=== PATIENT | male | born 1975 | race Caucasian/White ===

== ENCOUNTER → 2018-05-09 | Outpatient (CLI) | payer BC ==
--- NOTE | 2018-05-09 14:53 | PCVCIMAG ---
EXAM: NONINVASIVE ARTERIAL EXAMINATION OF BOTH LOWER EXTREMITIES INCLUDING PRE AND POST EXERCISE PRESSURE MEASUREMENTS AND DOPPLER WAVEFORMS INDICATION: Peripheral Arterial Disease. Leg pain. FINDINGS: Right Brachial: 148 mm Hg. Right Dorsalis Pedis: 118 mm Hg. Right Posterior Tibial: 104 mm Hg. Right IVETT = 0.80. Left Brachial: 145 mm Hg. Left Dorsalis Pedis: 102 mm Hg. Left Posterior Tibial: 101 mm Hg. Left IVETT = 0.69. Post Exercise: Right Brachial 166 mm Hg. Right Dorsalis Pedis: 70 mm Hg. Left Dorsalis Pedis: 61 mm Hg. Right IVETT = 0.42. Left IVETT = 0.37. IMPRESSION: Minimal resting ischemia in the right lower extremity. Moderately severe exercise induced ischemia in the right lower extremity. Mild resting ischemia in the left lower extremity. Moderately severe exercise induced ischemia in the left lower extremity. LOC:[id number]
--- NOTE | 2018-05-09 16:25 | PCVCIMAG ---
EXAM: BILATERAL LOWER EXTREMITY ARTERIAL DUPLEX INDICATION: Peripheral Arterial Disease. Leg pain. FINDINGS: Right Leg: Common femoral and profunda femoral arteries are patent. Segmental occlusion distal [place] superficial femoral artery. Popliteal artery is patent. The anterior tibial, peroneal, and posterior tibial arteries are patent. Left Leg: Common femoral profunda femoral arteries are patent. Segmental occlusion mid/distal [place] left superficial femoral artery. Popliteal artery is patent. The anterior tibial, peroneal, and posterior tibial arteries are patent. IMPRESSION: Segmental occlusion distal [place] right superficial femoral artery. Segmental occlusion mid/distal [place] left superficial femoral artery. LOC:[id number]
== END | disposition home or self-care (01) ==
LOC: PCVCIMAG 13:41
PROVIDERS: ATTEND Nuclear Medicine Nuclear Cardiology
DX: I73.9 Peripheral vascular disease, unspecified (principal); E78.00 Pure hypercholesterolemia, unspecified; E11.9 Type 2 diabetes mellitus without complications; Z72.0 Tobacco use
CPT/HCPCS: 93924; 93925

== ENCOUNTER → 2018-10-10 | Outpatient (CLI) | payer BC ==
--- NOTE | 2018-10-10 14:06 | PCVCIMAG ---
EXAM: NONINVASIVE ARTERIAL EXAMINATION OF BOTH LOWER EXTREMITIES INCLUDING PRE AND POST EXERCISE PRESSURE MEASUREMENTS AND DOPPLER WAVEFORMS INDICATION: Peripheral Arterial Disease. Leg pain. FINDINGS: Right Brachial: 127 mm Hg. Right Dorsalis Pedis: 143 mm Hg. Right Posterior Tibial: 101 mm Hg. Right IVETT = 1.01. Left Brachial: 141 mm Hg. Left Dorsalis Pedis: 112 mm Hg. Left Posterior Tibial: 106 mm Hg. Left IVETT = 0.79. Post Exercise: Left Brachial 153 mm Hg. Right Dorsalis Pedis: 103 mm Hg. Left Dorsalis Pedis: 71 mm Hg. Right IVETT = 0.67. Left IVETT = 0.46. IMPRESSION: No resting ischemia in the right lower extremity. Mild exercise induced ischemia in the right lower extremity. Mild resting ischemia in the left lower extremity. Moderate exercise induced ischemia in the left lower extremity. LOC:[id number]
--- NOTE | 2018-10-10 14:57 | PCVCIMAG ---
EXAM: BILATERAL LOWER EXTREMITY ARTERIAL DUPLEX INDICATION: Peripheral Arterial Disease. Leg pain. FINDINGS: Right Leg: Common femoral and profunda femoral arteries are patent. Origin superficial femoral artery shows 70-80% stenosis in the area showing moderate stenosis on recent angiogram. Previous stent mid/distal superficial femoral artery is widely patent. Proximal artery is patent. The anterior tibial, peroneal, and posterior tibial arteries are patent. Left Leg: Common femoral and profunda femoral is patent. 70-80% stenosis origin superficial femoral artery corresponding to an area of moderate disease and recent angiogram. Previous stent mid/distal superficial femoral artery maintaining good patency throughout. The popliteal artery is patent. The anterior tibial, peroneal, and posterior tibial arteries are patent. IMPRESSION: 70-80% stenosis origin right superficial femoral artery at an area of prior disease seen on recent angiogram. Otherwise no flow limiting stenosis in the right lower extremity. Previous mid/distal right superficial femoral artery stent maintaining good patency. 70-80% stenosis origin left superficial femoral artery at an area of prior disease seen on recent angiogram. Otherwise no flow limiting stenosis in the left lower extremity. Previous mid/distal left superficial femoral artery stent maintaining good patency. LOC:[id number]
--- NOTE | 2018-10-10 15:44 | PCVCIMAG ---
APPROVED REPORT Laterality: Bilateral Indications Stenosis Doppler Spectral Velocity Analysis PSV / EDVPSV / EDV ECA (R) 82 / 14 cm/sECA (L) 80 / 18 cm/s dICA (R) 42 / 26 cm/sdICA (L) 0 / 0 cm/s Efraín (R) 50 / 28 cm/smICA (L) 0 / 0 cm/s pICA (R) 56 / 27 cm/spICA (L) 0 / 0 cm/s Bulb (R) 51 / 20 cm/sBulb (L) 42 / 9 cm/s dCCA (R) 66 / 24 cm/sdCCA (L) 44 / 10 cm/s mCCA (R) 63 / 17 cm/smCCA (L) 73 / 12 cm/s Vert (R) 24 / 9 cm/sVert (L) 63 / 36 cm/s ICA/CCA 0.85 ICA/CCA 0.00 Findings The right carotid bulb has minimal plaque. The right proximal internal carotid artery shows no significant stenosis. The right common carotid artery shows no significant stenosis. The right external carotid artery shows no significant stenosis. The left carotid bulb has moderate plaque. The left proximal internal carotid is occluded at its origin The left common carotid artery shows no significant stenosis. The left external carotid artery shows no significant stenosis. Conclusion 1. Minimal right internal carotid artery plaquing without significant stenosis. 2. Left internal carotid artery occlusion 3. Antegrade vertebral flow.
== END | disposition home or self-care (01) ==
LOC: PCVCIMAG 13:10
PROVIDERS: ATTEND Nuclear Medicine Nuclear Cardiology
DX: I70.291 Other atherosclerosis of native arteries of extremities, right leg (principal); I65.22 Occlusion and stenosis of left carotid artery; E11.9 Type 2 diabetes mellitus without complications; Z87.891 Personal history of nicotine dependence
CPT/HCPCS: 93880; 93924; 93925

== ENCOUNTER → 2018-12-22 | Outpatient (CLI) | payer BC ==
--- NOTE | 2018-12-22 15:37 | PCVCIMAG ---
APPROVED REPORT Study performed: 12/22/2018 14:18:31 EXAM: Limited 2D Echocardiogram Patient Location: Echo lab Room #: 2Status: routine BSA: 1.82 HR: 79 bpmBP: 104/70 mmHg Rhythm: NSR Other Information Study Quality: Adequate Risk Factors: Cardiac Risk Factors: Hyperlipidemia, HTN, DM Indications CAD S/P SD 2D Dimensions IVSd: 10.69 (7-11mm) LVDd: 60.58 mm PWd: 9.69 (7-11mm)Ascending Ao: 35.02 (22-36mm) LVDs: 50.78 (25-40mm) Left Atrium: 37.05 (27-40mm) Aortic Root: 33.85 mm LV Single Plane 4CH: 34.43 % LV Single Plane 2CH: 37.47 % Biplane EF: 36.2 % Volumes Left Atrial Volume (Systole) Single Plane 4CH: 32.91 mLSingle Plane 2CH: 29.47 mL LA ESV Index: 19.00 mL/m2 Tricuspid Valve RAP Estimate: 7.00 mmHg Left Ventricle Left ventricle is mildly dilated. Inferior wall akinesis. Lateral wall hypokinesis. Borderline concentric left ventricular hypertrophy. Left ventricular systolic function is severely decreased. LVEF is 30-35%. Right Ventricle The right ventricle is normal size. The right ventricular systolic function is normal. Atria The left atrium size is normal. The right atrium size is normal. Aortic Valve The aortic valve is normal in structure. Mitral Valve The mitral valve is normal in structure. Tricuspid Valve The tricuspid valve is normal in structure. Pulmonic Valve The pulmonary valve is normal in structure. Great Vessels The aortic root is normal in size. The ascending aorta is normal in size. IVC is normal in size and collapses >50% with inspiration. Pericardium There is no pericardial effusion. <Conclusion> Left ventricle is mildly dilated. Borderline concentric left ventricular hypertrophy. Left ventricular systolic function is severely decreased. Inferior wall akinesis. Lateral wall hypokinesis. LVEF is 30-35%. The right ventricle is normal size. The left atrium size is normal. The aortic valve is normal in structure. The mitral valve is normal in structure. The aortic root is normal in size. There is no pericardial effusion.
== END | disposition home or self-care (01) ==
LOC: PCVCIMAG 13:51
PROVIDERS: ATTEND Internal Medicine Cardiovascular Disease
DX: I25.10 Atherosclerotic heart disease of native coronary artery without angina pectoris (principal); I25.2 Old myocardial infarction; I11.9 Hypertensive heart disease without heart failure; I70.1 Atherosclerosis of renal artery; I73.9 Peripheral vascular disease, unspecified; E78.00 Pure hypercholesterolemia, unspecified; E11.9 Type 2 diabetes mellitus without complications; I25.5 Ischemic cardiomyopathy; Z87.891 Personal history of nicotine dependence; Z79.82 Long term (current) use of aspirin; Z79.899 Other long term (current) drug therapy; Z79.84 Long term (current) use of oral hypoglycemic drugs
CPT/HCPCS: 93308

== ENCOUNTER → 2019-01-06 | Outpatient (CLI) | payer BC ==
--- NOTE | 2019-01-06 12:55 | PCVCIMAG ---
EXAM: LEFT LOWER EXTREMITY ARTERIAL DUPLEX INDICATION: Peripheral Arterial Disease. Leg pain. FINDINGS: Left Leg: Common femoral and profunda femoral arteries are patent. Interval occlusion has developed throughout the superficial femoral artery including stent in the mid/distal portion. Interval occlusion throughout the popliteal artery has also developed. Severely blunted flow in the infrapopliteal vessels make these difficult to evaluate with minimal flow identified. IMPRESSION: Interval occlusion of the left superficial femoral artery and popliteal artery as detailed above with severely blunted flow in the infrapopliteal vessels. LOC:[id number]
== END | disposition home or self-care (01) ==
LOC: PCVCIMAG 10:51
PROVIDERS: ATTEND Nuclear Medicine Nuclear Cardiology
DX: I70.292 Other atherosclerosis of native arteries of extremities, left leg (principal); E11.9 Type 2 diabetes mellitus without complications; E78.00 Pure hypercholesterolemia, unspecified; I10 Essential (primary) hypertension; Z82.3 Family history of stroke; Z79.82 Long term (current) use of aspirin; Z79.84 Long term (current) use of oral hypoglycemic drugs; Z72.0 Tobacco use; Z79.899 Other long term (current) drug therapy
CPT/HCPCS: 93926

== ENCOUNTER → 2019-02-14 | Outpatient (CLI) | payer BC ==
--- NOTE | 2019-02-14 10:15 | PCVCIMAG ---
EXAM: BILATERAL LOWER EXTREMITY ARTERIAL DUPLEX INDICATION: Peripheral Arterial Disease. Leg pain. FINDINGS: Right Leg: Common femoral and profunda femoral arteries are patent. 75% stenosis origin [place] superficial femoral artery. Previous stent mid/distal superficial femoral artery maintaining good patency. Popliteal artery is patent. The anterior tibial, peroneal, and posterior tibial arteries are patent. Left Leg: Common femoral and profunda femoral arteries are patent. Occlusion throughout the superficial femoral artery including stent in the mid/distal portion as was seen on recent angiogram. Refilling of the mid/distal popliteal artery. The anterior tibial, peroneal, and posterior tibial arteries are patent. IMPRESSION: 75% stenosis origin right superficial femoral artery. Previous stent mid/distal right superficial femoral artery maintaining good patency. Unchanged occlusion throughout the left superficial femoral artery and upper popliteal artery as described. LOC:[id number]
--- NOTE | 2019-02-14 13:31 | PCVCIMAG ---
APPROVED REPORT Study performed: 02/14/2019 09:16:41 EXAM: Comprehensive 2D, Doppler, and color-flow Echocardiogram Patient Location: Echo lab Room #: 2Status: routine BSA: 1.87 HR: 78 bpmBP: 100/68 mmHg Rhythm: NSR Other Information Study Quality: Good Risk Factors: Cardiac Risk Factors: HTN, Hyperlipidemia, DM, FHX of CAD, Smoking Indications Diabetes Non STEMI CAD Cardiomyopathy Hypertension/HDD 2D Dimensions IVSd: 12.20 (7-11mm)LVOT Diam: 23.60 (18-24mm) LVDd: 49.01 mm PWd: 12.57 (7-11mm)Ascending Ao: 28.83 (22-36mm) LVDs: 45.49 (25-40mm) Left Atrium: 35.82 (27-40mm) Aortic Root: 31.39 mm LV Single Plane 4CH: 33.60 % LV Single Plane 2CH: 37.79 % Biplane EF: 35.1 % Volumes Left Atrial Volume (Systole) Single Plane 4CH: 17.36 mLSingle Plane 2CH: 15.60 mL LA ESV Index: 17.00 mL/m2 Aortic Valve AoV Peak Thaddeus.: 0.95 m/s AO Peak Gr.: 4.21 mmHgLVOT Max P.55 mmHg LVOT Max V: 0.62 m/s DUNCAN Vmax: 2.87 cm2 Mitral Valve E/A Ratio: 0.6 MV Decel. Time: 207.88 ms MV E Max Thaddeus.: 0.39 m/s MV A Thaddeus.: 0.69 m/s IVRT: 134.95 ms Pulmonary Valve PV Peak Thaddeus.: 0.69 m/sPV Peak Gr.: 1.90 mmHg Pulmonary Vein P Vein S: 0.43 m/sP Vein A: 0.45 m/s P Vein D: 0.16 m/sP Vein A Dur.: 103.8 msec P Vein S/D Ratio: 2.69 Tricuspid Valve TV Vmax: 0.48 m/s Left Ventricle The left ventricle is normal size. Global moderate to severt hypokinesis with inferior wall akinesis. Mild concentric left ventricular hypertrophy. Left ventricular systolic function is moderate to severely decreased. LVEF is 30-35%. Grade I - abnormal relaxation pattern. Right Ventricle The right ventricle is normal size. The right ventricular systolic function is normal. Atria The left atrium size is normal. The right atrium size is normal. Aortic Valve Aortic valve is trileaflet. Mild aortic valve sclerosis. No aortic regurgitation is present. There is no aortic valvular stenosis. Mitral Valve The mitral valve is normal in structure. There is no mitral valve regurgitation noted. No evidence of mitral valve stenosis. Tricuspid Valve The tricuspid valve is normal in structure. Trace tricuspid regurgitation. No apparent pulmonary hypertension. Pulmonic Valve The pulmonary valve is normal in structure. Trace pulmonic regurgitation. Great Vessels The aortic root is normal in size. The ascending aorta is normal in size. Aortic arch is normal in caliber. IVC is normal in size and collapses >50% with inspiration. Pericardium There is no pericardial effusion. There is no pleural effusion. <Conclusion> The left ventricle is normal size. Global moderate to severt hypokinesis with inferior wall akinesis. Mild concentric left ventricular hypertrophy. Left ventricular systolic function is moderate to severely decreased. LVEF is 30-35%. Grade I - abnormal relaxation pattern. The right ventricle is normal size. The left atrium size is normal. Aortic valve is trileaflet. Mild aortic valve sclerosis. There is no aortic valvular stenosis. There is no mitral valve regurgitation noted. Trace tricuspid regurgitation. No apparent pulmonary hypertension. The aortic root is normal in size. There is no pericardial effusion.
== END | disposition home or self-care (01) ==
LOC: PCVCIMAG 08:22
PROVIDERS: ATTEND Internal Medicine Cardiovascular Disease
DX: I70.202 Unspecified atherosclerosis of native arteries of extremities, left leg (principal); I11.9 Hypertensive heart disease without heart failure; I35.8 Other nonrheumatic aortic valve disorders; I25.10 Atherosclerotic heart disease of native coronary artery without angina pectoris; E11.9 Type 2 diabetes mellitus without complications; E78.5 Hyperlipidemia, unspecified; E78.00 Pure hypercholesterolemia, unspecified; Z86.79 Personal history of other diseases of the circulatory system; Z72.0 Tobacco use; Z82.3 Family history of stroke; Z79.82 Long term (current) use of aspirin; Z79.84 Long term (current) use of oral hypoglycemic drugs; Z79.899 Other long term (current) drug therapy
CPT/HCPCS: 93306; 93925